=== PATIENT | female | born 1970 | race Caucasian/White ===

== ENCOUNTER → 2021-08-02 | Outpatient (CLI) | payer BC ==
--- NOTE | 2021-08-07 11:49 | RAD ---
Bilateral digital screening mammogram to include digital breast tomosynthesis (3-D mammography) 08/02 CLINICAL HISTORY: Screening study. Digital MLO and CC mammograms of both breasts were obtained. Additionally digital breast tomosynthesi s images (3-D mammography) of both breasts in the CC and MLO projections were obtained. Comparison study is dated 06/25/2018. The breast parenchyma is composed of scattered fibroglandular densities which can obscure a lesion on mammography (breast density B). Benign-appearing calcifications are seen within both breasts. No spi culated mass is seen. No malignant appearing calcification or area of architectural distortion is not ed. Digital breast tomosynthesis images demonstrate no spiculated mass. No malignant appearing calcificat ion is seen. Impression: BI-RADS Category 1: Negative. There is no mammographic evidence of malignancy. Routine y early screening mammography is recommended for follow-up. This examination was reviewed with the aid of computer-aided detection. A mammogram does not have 100% sensitivity and therefore a negative imaging study should not delay fu rther work up of a suspicious abnormality. Patient information is entered into the reminder system with a target due date for the next screening mammogram of 08/02/2022. "Our facility is accredited by the [employer] Mammography [employer]." Electronically signed by: Yoseph Monaco MD (08/07/2021 11:47 AM) [id number]
== END ==
LOC: MAMMO 13:19
PROVIDERS: ATTEND Family Medicine
DX: Z12.31 Encounter for screening mammogram for malignant neoplasm of breast (principal)
CPT/HCPCS: 77063; 77067

== ENCOUNTER → 2021-08-31 | Outpatient (CLI) | payer BC ==
--- NOTE | 2021-08-31 19:25 | RAD ---
EXAM: Standing 3 views of the right foot DATE: 08/31/2021 1:55 PM INDICATION: Reason: RT FOOT PAIN / Spl. Instructions: / History: COMPARISON: No Prior FINDINGS: No acute fracture or dislocation. Talonavicular degenerative changes are seen. No significant soft ti ssue swelling. Plantar arch is preserved. Hallux valgus with lateral subluxation of the sesamoids. IMPRESSION: 1. No acute fracture or dislocation. 2. Talonavicular degenerative changes 3. Hallux Valgus with lateral subluxation of the sesamoids. Electronically signed by: Marquez Hollis MD (08/31/2021 7:23 PM) JOSE
== END ==
LOC: RAD 13:29
PROVIDERS: ATTEND Podiatrist
DX: M19.071 Primary osteoarthritis, right ankle and foot (principal); M20.11 Hallux valgus (acquired), right foot
CPT/HCPCS: 73630